=== PATIENT | female | born 1980 | race African-American/Black ===

== ENCOUNTER 2018-08-28 14:47 | Emergency (ER) | payer MEDICAID ==
[~2018-08-28] VITALS: Ht 152.4 cm; Wt 57.0 kg
[2018-08-28] MEDS ORDERED: PREDNISONE 20MG TABLET PO STA (15:52)
[2018-08-28] MEDS ORDERED: ALBUTEROL (0.083%) 2.5MG/3ML NEB HHN STA (15:52)
[2018-08-28] MEDS ORDERED: IPRATROPIUM BROMIDE (0.02%) 0.5MG/2.5ML NEB HHN STA (15:52)
[2018-08-28 17:58] VITALS: BP 117/74
== END 2018-08-28 18:00 | disposition home or self-care (01) ==
LOC: ER 14:47
DX: J45.901 Unspecified asthma with (acute) exacerbation (principal); Z87.891 Personal history of nicotine dependence
CPT/HCPCS: 71045; 81025; 87804; 94640; 99284; J7512; J7611

== ENCOUNTER 2023-07-17 09:35 | Emergency (ER) | payer MEDICAID ==
[~2023-07-17] VITALS: Ht 170.2 cm; Wt 59.0 kg
[2023-07-17 09:40] VITALS: BP 104/61; PULSE 80; RESP 18; TEMP 97.7; O2SAT 100
== END 2023-07-17 15:30 | disposition left against medical advice (07) ==
LOC: ER 09:35
DX: R42 Dizziness and giddiness (principal); J45.909 Unspecified asthma, uncomplicated
CPT/HCPCS: 99283